=== PATIENT | female | born 1935 | race Caucasian/White ===

== ENCOUNTER 2020-06-26 03:40 | Emergency (ER) | payer OTHER, MEDICAID ==
[~2020-06-26] VITALS: Ht 165.1 cm; Wt 50.2 kg
[~2020-06-26 03:40] MED LIST: ACET500T68 PO; AMLO2.5T5 PO; ASPI-630 PO; CARV25TA2 PO; CIPR250T PO; CYAN10002 IM; DIPH50CA PO; HYDR-3164 PO; LISI-334 PO; LOPE1LIQ PO; OMEG1CAP6 PO; TRAM50TA PO
[2020-06-26 03:45] VITALS: BP 137/64
--- NOTE | 2020-06-26 04:18 | PHYS DOC ---
Past Medical History Past Medical History: CAD, CVA, Hypertension, TX, Stroke Additional Past Medical Histor: parkinsons, falls, chronic kidney disease, DJD Past Surgical History: Appendectomy, Cholecystectomy, Coronary Bypass Surgery, Hysterectomy, Tonsillectomy Smoking Status: Current Every Day Smoker Alcohol Use: None Drug Use: None General Adult EDM: Chief Complaint: LOWER EXT PAIN HPI: HPI: Patient is a 84 year old female presents with the chief complaint of right leg pain. Per EMS patient states x 5 days. Patient initially stated pain x 2 days-- subsequently stated 2 weeks then 2 years. Patients location of pain has changed from right calf, to right knee, to right thigh. Patient denies any history of falls. States she took norco prior to arrival but it did not help. Patient currently denies any pain. Review of Systems: Review of Systems: Constitutional: Denies fever or chills. [] Eyes: Denies change in visual acuity. [] HENT: Denies nasal congestion or sore throat. [] Respiratory: Denies cough or shortness of breath. [] Cardiovascular: Denies chest pain or edema. [] GI: Denies abdominal pain, nausea, vomiting, bloody stools or diarrhea. [] : Denies dysuria. [] Musculoskeletal: positive leg pain. Integument: Denies rash. [] Neurologic: Denies headache, focal weakness or sensory changes. [] Endocrine: Denies polyuria or polydipsia. [] Lymphatic: Denies swollen glands. [] Psychiatric: Denies depression or anxiety. [] Heart Score: Risk Factors: Risk Factors: DM, Current or recent (<one month) smoker, HTN, HLP, family history of CAD, obesity. Risk Scores: Score 0 - 3: 2.5% MACE over next 6 weeks - Discharge Home Score 4 - 6: 20.3% MACE over next 6 weeks - Admit for Clinical Observation Score 7 - 10: 72.7% MACE over next 6 weeks - Early Invasive Strategies Allergies: Allergies: Allergies Coded Allergies Type Severity Reaction Last Updated Verified morphine Allergy Mild vomiting 10/18/13 Yes Physical Exam: PE: Constitutional: Well developed, well nourished, no acute distress, non-toxic appearance. [] HENT: Normocephalic, atraumatic, bilateral external ears normal, oropharynx moist, no oral exudates, nose normal. [] Eyes: PERRLA, EOMI, conjunctiva normal, no discharge. [] Neck: Normal range of motion, no tenderness, supple, no stridor. [] Cardiovascular:Heart rate regular rhythm, no murmur [] Lungs & Thorax: Bilateral breath sounds clear to auscultation [] Abdomen: Bowel sounds normal, soft, no tenderness, no masses, no pulsatile masses. [] Skin: Warm, dry, no erythema, no rash. [] Back: No tenderness, no CVA tenderness. [] Extremities: No tenderness, no cyanosis, no clubbing, ROM intact, no edema. [] Neurologic: Alert and oriented X 3, normal motor function, normal sensory function, no focal deficits noted. [] Psychologic: Affect normal, judgement normal, mood normal. [] EKG: EKG: [] Radiology/Procedures: Radiology/Procedures: [] Course & Med Decision Making: Course & Med Decision Making Pertinent Labs and Imaging studies reviewed. (See chart for details) [] Patient was evaluated for chief complaint. Based upon history of present illness and physical exam no emergent work-up performed. Patient declined any pain while in the department. She states prior to arrival she took hydrocodone. There is no history of traumatic injury and patient exam was normal. Dragon Disclaimer: Dragdriss Disclaimer: This electronic medical record was generated, in whole or in part, using a voice recognition dictation system. Departure Departure Impression: Primary Impression: Leg pain Disposition: 01 NM HOME SELF CARE/HOMELESS Referrals: HONG SANDOVAL MD (PCP) TAYLOR HAZEL DO Jun 26, 2020 04:18
== END 2020-06-26 05:07 | disposition home or self-care (01) ==
LOC: ER 03:40
DX: M79.604 Pain in right leg (principal); I25.10 Atherosclerotic heart disease of native coronary artery without angina pectoris; I25.2 Old myocardial infarction; I12.9 Hypertensive chronic kidney disease with stage 1 through stage 4 chronic kidney disease, or unspecified chronic kidney disease; N18.9 Chronic kidney disease, unspecified; F17.200 Nicotine dependence, unspecified, uncomplicated; Z86.73 Personal history of transient ischemic attack (TIA), and cerebral infarction without residual deficits; Z90.710 Acquired absence of both cervix and uterus; Z90.49 Acquired absence of other specified parts of digestive tract; Z90.89 Acquired absence of other organs; Z98.890 Other specified postprocedural states
CPT/HCPCS: 99284